=== PATIENT | male | born 1950 ===

== ENCOUNTER 2018-08-05 07:48 | Outpatient (CLI) | payer OTHER ==
[~2018-08-05] VITALS: Ht 152.4 cm; Wt 63.5 kg
== END 2018-08-05 08:05 | disposition home or self-care (01) ==
LOC: OFIC 805 07:48
DX: H90.42 Sensorineural hearing loss, unilateral, left ear, with unrestricted hearing on the contralateral side (principal); H93.12 Tinnitus, left ear

== ENCOUNTER → 2018-08-05 | Outpatient (CLI) | payer OTHER | END | disposition home or self-care (01) | LOC: LAB 11:07 | DX: H90.42 Sensorineural hearing loss, unilateral, left ear, with unrestricted hearing on the contralateral side (principal); H93.12 Tinnitus, left ear ==

== ENCOUNTER 2018-09-16 07:52 | Outpatient (CLI) | payer OTHER ==
[~2018-09-16] VITALS: Ht 152.4 cm; Wt 63.5 kg
== END 2018-09-16 08:15 | disposition home or self-care (01) ==
LOC: OFIC 805 07:52
DX: H90.41 Sensorineural hearing loss, unilateral, right ear, with unrestricted hearing on the contralateral side (principal); H93.12 Tinnitus, left ear